=== PATIENT | female | born 1970 ===

== ENCOUNTER 2018-03-05 11:18 | Outpatient (CLI) | payer OTHER ==
[~2018-03-05] VITALS: Ht 154.9 cm; Wt 86.2 kg
== END 2018-03-05 11:40 | disposition home or self-care (01) ==
LOC: OFIC 805 11:18
DX: J31.0 Chronic rhinitis (principal); H65.23 Chronic serous otitis media, bilateral; R22.9 Localized swelling, mass and lump, unspecified; R11.10 Vomiting, unspecified